=== PATIENT | female | born 1950 ===

== ENCOUNTER 2018-04-02 10:15 | Inpatient (IN) | payer OTHER ==
[~2018-04-02] VITALS: Ht 160 cm; Wt 54.0 kg
[2018-04-02] MEDS ORDERED: LEVO-T25 MCG PO (10:43)
[2018-04-02] MEDS ORDERED: CALCIUM500 M2 PO (10:43)
[2018-04-02] MEDS ORDERED: MULTI VITAMIN1 EACH PO (10:43)
[2018-04-02] MEDS ORDERED: ATORVASTATIN CA10 MG PO (10:44)
[2018-04-11] MEDS ORDERED: DOCUSATE SODIU100 MG PO (09:51)
[2018-04-11] MEDS ORDERED: GABAPENTIN800 MG PO (09:51)
[2018-04-11] MEDS ORDERED: AMOX-CLAV 875-1 EACH PO (09:52)
[2018-04-11] MEDS ORDERED: PERCOCET 5-3251 EACH PO (09:53)
[2018-04-11] MEDS ORDERED: CLONAZEPAM1 MG PO (09:53)
== END 2018-04-11 14:18 | disposition home or self-care (01) | DRG 455 ==
LOC: PED 04-10 04:18 → O/R 04-10 04:18 → SURG 04-10 10:15 → PED 04-10 17:57
PROVIDERS: Orthopaedic Surgery Orthopaedic Surgery of the Spine
PROC: 0SG0071 Fusion of Lumbar Vertebral Joint with Autologous Tissue Substitute, Posterior Approach, Posterior Column, Open Approach (ICD-10-PCS; 2018-04-10)
PROC: 0ST20ZZ Resection of Lumbar Vertebral Disc, Open Approach (ICD-10-PCS; 2018-04-10)
PROC: 0SB40ZZ Excision of Lumbosacral Disc, Open Approach (ICD-10-PCS; 2018-04-10)
PROC: 0SG00AJ Fusion of Lumbar Vertebral Joint with Interbody Fusion Device, Posterior Approach, Anterior Column, Open Approach (ICD-10-PCS; 2018-04-10)
PROC: 07DS3ZZ Extraction of Vertebral Bone Marrow, Percutaneous Approach (ICD-10-PCS; 2018-04-10)
PROC: 0SG00A0 Fusion of Lumbar Vertebral Joint with Interbody Fusion Device, Anterior Approach, Anterior Column, Open Approach (ICD-10-PCS; principal; 2018-04-10 13:00)
DX: M48.061 Spinal stenosis, lumbar region without neurogenic claudication (principal); M43.16 Spondylolisthesis, lumbar region; M51.17 Intervertebral disc disorders with radiculopathy, lumbosacral region; M47.26 Other spondylosis with radiculopathy, lumbar region; E03.8 Other specified hypothyroidism

== ENCOUNTER → 2018-05-11 | Emergency (ER) | payer OTHER ==
[~2018-05-11] VITALS: Ht 160 cm; Wt 54.4 kg
[~2018-05-11] MED LIST: AMOX-CLAV 875-1 EACH PO; ATORVASTATIN CA10 MG PO; CALCIUM500 M2 PO; CLONAZEPAM1 MG PO; DOCUSATE SODIU100 MG PO; GABAPENTIN800 MG PO; LEVO-T25 MCG PO; MULTI VITAMIN1 EACH PO; PERCOCET 5-3251 EACH PO
== END | disposition left against medical advice (07) ==
LOC: ER 10:04
DX: S80.02XA Contusion of left knee, initial encounter (principal); S80.01XA Contusion of right knee, initial encounter; S70.01XA Contusion of right hip, initial encounter; M62.830 Muscle spasm of back; W10.8XXA Fall (on) (from) other stairs and steps, initial encounter; Y93.89 Activity, other specified; Y92.018 Other place in single-family (private) house as the place of occurrence of the external cause; Y99.8 Other external cause status

== ENCOUNTER 2019-05-29 05:32 | Day surgery (SDC) | payer OTHER | END 2019-05-29 12:35 | disposition home or self-care (01) | LOC: CIR.AMB 05:32 → EDBD 13:45 → CIR.AMB 13:45 | DX: M75.121 Complete rotator cuff tear or rupture of right shoulder, not specified as traumatic (principal); M75.21 Bicipital tendinitis, right shoulder; M19.011 Primary osteoarthritis, right shoulder ==